=== PATIENT | female | born 1960 | race Caucasian/White ===

== ENCOUNTER → 2017-09-23 | Outpatient (CLI) | payer SELFPAY ==
[~2017-09-23] MED LIST: ONDA4TAB97 PO; OXYC-865 PO
--- NOTE | 2017-09-23 16:59 | RADIOLOGY IMAGING REPORT ---
FACILITY: [facility] - [place] PATIENT NAME: Yvrose Vazquez : 1960 MR: [id number] V: [id number] EXAM DATE: ORDERING PHYSICIAN: BRETT PINEDA TECHNOLOGIST: Location: [facility] - [place] Patient: Yvrose Vazquez : 1960 Visit/Account:[id number] Date of Sevice: 09/23/2017 Exam type: LUMBAR SPINE 2 OR 3 VIEW History: Long time back pain Comparison: None. Findings: AP and lateral views of the lumbar spine were submitted There are six nonrib-bearing lumbar-type vertebral bodies present. There is no evidence of acute fra ctures or subluxations the disc spaces appear well-preserved IMPRESSION: 1. Unremarkable two views of the lumbar spine. If patient's symptoms persist MR may be helpful Report Dictated By: Porsha Zaumdio MD at 09/23/2017 4:53 PM Report E-Signed By: Porsha Zamudio MD at 09/23/2017 4:55 PM WSN:[email or web address]
--- NOTE | 2017-09-23 17:00 | RADIOLOGY IMAGING REPORT ---
FACILITY: [facility] - [place] PATIENT NAME: Yvrose Vazquez : 1960 MR: [id number] V: [id number] EXAM DATE: ORDERING PHYSICIAN: BRETT PINEDA TECHNOLOGIST: Location: [facility] Patient: Yvrose Vazquez : 1960 Visit/Account:[id number] Date of Sevice: 09/23/2017 Exam type: THORACIC SPINE 2 VIEW History: Long time back pain Comparison: None. Findings: AP and lateral views of the thoracic spine were submitted. There is a minimal levoconvex curvature t o the mid thoracic spine. There is no evidence of acute fractures or subluxations. No significant d egenerative changes are identified. IMPRESSION: 1. Gentle levoconvex curvature to the thoracic spine. No evidence of acute fractures or subluxation s Report Dictated By: Porsha Zamudio MD at 09/23/2017 4:55 PM Report E-Signed By: Porsha Zamudio MD at 09/23/2017 4:56 PM [email or web address]
== END ==
LOC: RAD 16:06
PROVIDERS: ATTEND Nurse Practitioner Family
DX: M54.5 Low back pain (principal); M54.6 Pain in thoracic spine
CPT/HCPCS: 72070; 72100

== ENCOUNTER 2018-04-16 23:21 | Emergency (ER) | payer OTHER ==
[~2018-04-16 23:21] MED LIST changes: -ACET500T68 PO; -CLIN300C99 PO; -LOR5/325 PO
--- NOTE | 2018-04-16 23:25 | ER Report ---
History and Physical Time Seen By MD: 23:26 HPI/ROS CHIEF COMPLAINT: slipped on the ice, wrist and knee pain HISTORY OF PRESENT ILLNESS: This is a 57 year old female. She was at work and slipped on the ice. Hyperextended her right knee. Has pain in right wrist as well with swelling and deformity. Has chronic back pain which is unchanged. No head injury or loss of consciousness. Normal sensation in arm and leg. Allergies: Coded Allergies: Antihistamines - Piperidine (Verified Allergy, Intermediate, 04/16/18) NSAIDS (Non-Steroidal Anti-Inflamma (Verified Allergy, Intermediate, 04/16/18) Penicillins (Verified Allergy, Intermediate, 04/16/18) Sulfa (Sulfonamide Antibiotics) (Verified Allergy, Intermediate, 04/16/18) cefuroxime (Verified Allergy, Intermediate, 04/16/18) erythromycin base (Verified Allergy, Intermediate, 04/16/18) tetracycline (Verified Allergy, Intermediate, 04/16/18) Home Meds Active Scripts Hydrocodone Bit/Acetaminophen (HYDROCODON-ACETAMINOPHEN 5-325) 1 Each Tablet, 1 EACH PO Q4H PRN for PAIN, #12 TAB 0 Refills Prov:TRES FRANCES MD 04/17/18 Discontinued Scripts Ondansetron Hcl (ZOFRAN) 4 Mg Tablet, 4 MG PO Q6H PRN for NAUSEA/VOMITING, #10 Prov:NEO WATSON DO 03/28/16 Oxycodone Hcl/Acetaminophen (PERCOCET 5-325 MG TABLET) 1 Each Tablet, 1 EACH PO Q4H PRN for PAIN, #12 Prov:NEO WATSON DO 03/28/16 Reviewed Nurses Notes: Yes Hx Substance Use Disorder: No Constitutional Vital Sign - Last 24 Hours 04/16/18 04/16/18 04/16/18 04/17/18 23:29 23:31 23:36 00:00 Temp 97.4 Pulse 85 Resp 18 B/P (MAP) 144/97 144/97 (113) 139/113 (122) Pulse Ox 96 96 O2 Delivery Room Air 04/17/18 04/17/18 04/17/18 04/17/18 00:29 00:51 01:00 01:06 Pulse 75 77 B/P (MAP) 134/88 (103) 124/103 (110) Pulse Ox 95 95 04/17/18 01:10 Pulse 77 Pulse Ox 93 Physical Exam General: Alert, no distress. Musculoskeletal: Right wrist is tender over the distal radius. No pain over ulnar styloid. No pain in the hand. Normal movement, but causes pain. Knee with pain medial and posterior aspect. No pain over patella, lateral side. No pain over quads/hamstrings. No laxity, but guarding and pain with testing. Neuro: Normal sensation in foot/leg, and hand/arm. Cardiovascular: Normal cap refill and pulses. Skin: No skin breakdown. DIFFERENTIAL DIAGNOSIS: After history and physical exam differential diagnosis was considered for wrist injury and knee injury, for fracture or soft tissue injury, sprain or strain. Medical Decision Making EKG/Imaging Imaging INDICATION: fall, wrist and knee pain EXAM DATE: 04/16/2018 11:37 PM COMPARISON: None. FINDINGS: 3 views right wrist. Mineralization is low. There is a comminuted, impacted and displaced intra-articular distal fracture of the radius. Minimally displaced fracture through the base of the ulnar styloid. Soft tissue swelling about the distal forearm and wrist. IMPRESSION: Distal fractures of the right radius and ulna in the setting of low bone mineralization. Report Dictated By: Lanre Meyer MD at 04/17/2018 12:48 AM INDICATION: fall, wrist and knee pain EXAM DATE: 04/16/2018 11:37 PM COMPARISON: None. FINDINGS: 4 views right knee. Mineralization is low. No acute alignment abnormality or fracture. Soft tissues are unremarkable. IMPRESSION: No acute osseous abnormality of the right knee. Report Dictated By: Lanre Meyer MD at 04/17/2018 12:50 AM ED Course/Re-evaluation ED Course Gave Lortab 5/325 to help with pain. Imaging shows fractures as noted above. Pooja khan half cast and sling applied. For her knee, she is having significant pain so we did give her a knee immobilizer and crutches. She will follow up with [facility] Re-evaluation Procedure: Pooja khan forearm after cast placement. A half-cast/splint as noted above was applied. After application of the half- cast, I returned and re-examined the patient. The half-cast was adequately immobilizing the joint and distally the patient's circulation and sensation was intact. This was applied by the network support technician. Decision to Disposition Date: Apr 17, 2018 Decision to Disposition Time: 01:05 Depart Departure Latest Vital Signs Vital Signs Date Time Temp Pulse Resp B/P (MAP) Pulse Ox O2 Delivery O2 Flow Rate FiO2 04/17/18 01:10 77 93 04/17/18 01:00 124/103 (110) 04/16/18 23:29 97.4 18 Room Air Impression: Primary Impression: Wrist fracture, right Additional Impressions: Fall Knee strain Condition: Improved Disposition: HOME OR SELF-CARE Referrals: BRETT PINEDA OTC CLERK (PCP) New Scripts Hydrocodone Bit/Acetaminophen (HYDROCODON-ACETAMINOPHEN 5-325) 1 Each Tablet 1 EACH PO Q4H PRN for PAIN, #12 TAB 0 Refills Prov: TRES FRANCES MD 04/17/18 Patient Instructions: Muscle Strain (ED), Wrist Fracture in Adults (ED) Additional Instructions: Ibuprofen 200mg over the counter tablets, take 4 tablets three times a day with food. Lortab 5/325, one every 4 hours as needed for pain. Apply ice 20 minutes every 1-2 hours while awake. Keep the splint in place until you follow up with [facility]. Call [facility] tomorrow morning to arrange an appointment for early next week. Rest the injured area, keep it elevated while at rest. Problem Qualifiers Primary Impression: Wrist fracture, right Encounter type: initial encounter Fracture type: closed Qualified Codes: S62.101A - Fracture of unspecified carpal bone, right wrist, initial encounter for closed fracture Additional Impressions: Fall Encounter type: initial encounter Qualified Codes: W19.XXXA - Unspecified fall, initial encounter Knee strain Encounter type: initial encounter Laterality: right Qualified Codes: S86.911A - Strain of unspecified muscle(s) and tendon(s) at lower leg level, right leg, initial encounter TRES FRANCES MD Apr 16, 2018 23:25
[2018-04-16] MEDS ORDERED: APAP/HYDROCODONE 325/5 TAB PO ONE (23:35)
--- NOTE | 2018-04-17 00:53 | RADIOLOGY IMAGING REPORT ---
FACILITY: [facility] PATIENT NAME: Yvrose Vazquez : 1960 MR: [id number] V: [id number] EXAM DATE: ORDERING PHYSICIAN: TRES FRANCES TECHNOLOGIST: Location: [facility] Patient: Yvrose Vazquez : 1960 Visit/Account:[id number] Date of Sevice: 04/16/2018 INDICATION: fall, wrist and knee pain EXAM DATE: 04/16/2018 11:37 PM COMPARISON: None. FINDINGS: 3 views right wrist. Mineralization is low. There is a comminuted, impacted and displaced intra-lily cular distal fracture of the radius. Minimally displaced fracture through the base of the ulnar styl oid. Soft tissue swelling about the distal forearm and wrist. IMPRESSION: Distal fractures of the right radius and ulna in the setting of low bone mineralization. Report Dictated By: Lanre Meyer MD at 04/17/2018 12:48 AM Report E-Signed By: Lanre Meyer MD at 04/17/2018 12:50 AM WSN:[id number]
--- NOTE | 2018-04-17 00:54 | RADIOLOGY IMAGING REPORT ---
FACILITY: [facility] - [place] PATIENT NAME: Yvrose Vazquez : 1960 MR: [id number] V: [id number] EXAM DATE: ORDERING PHYSICIAN: TRES FRANCES TECHNOLOGIST: Location: [facility] - [place] Patient: Yvrose Vazquez : 1960 Visit/Account:[id number] Date of Sevice: 04/16/2018 INDICATION: fall, wrist and knee pain EXAM DATE: 04/16/2018 11:37 PM COMPARISON: None. FINDINGS: 4 views right knee. Mineralization is low. No acute alignment abnormality or fracture. Soft tissues are unremarkable. IMPRESSION: No acute osseous abnormality of the right knee. Report Dictated By: Lanre Meyer MD at 04/17/2018 12:50 AM Report E-Signed By: Lanre Meyer MD at 04/17/2018 12:51 AM WSN:[id number]
[2018-04-17 01:00] VITALS: BP 124/103
[2018-04-17] MEDS ORDERED: LOR5/325 PO (01:05)
[2018-04-17] MEDS ORDERED: ACET/HYDROC 5/325MG TH ER ONLY 2 TAB/BOTTLE PO ONE (01:10)
[2018-04-22] MEDS ORDERED: ACET500T68 PO (14:33)
== END 2018-04-17 02:50 | disposition home or self-care (01) ==
LOC: ER 23:36
DX: S62.101A Fracture of unspecified carpal bone, right wrist, initial encounter for closed fracture (principal); S86.911A Strain of unspecified muscle(s) and tendon(s) at lower leg level, right leg, initial encounter; W00.0XXA Fall on same level due to ice and snow, initial encounter
CPT/HCPCS: 29125; 73110; 73564; 99284; A4565; L1830

== ENCOUNTER → 2018-04-16 | Outpatient (CLI) | payer OTHER ==
[~2018-04-16] MED LIST changes: +ACET500T68 PO; +CLIN300C99 PO; +LOR5/325 PO
== END ==
LOC: AMB 23:08
PROVIDERS: ATTEND Nurse Practitioner
DX: M25.531 Pain in right wrist (principal); M25.561 Pain in right knee; M54.5 Low back pain; W00.0XXA Fall on same level due to ice and snow, initial encounter
CPT/HCPCS: A0425; A0429

== ENCOUNTER → 2018-04-20 | Outpatient (CLI) | payer OTHER ==
[~2018-04-20] MED LIST changes: +ACET500T68 PO; +LOR5/325 PO
--- NOTE | 2018-04-20 15:44 | RADIOLOGY IMAGING REPORT ---
FACILITY: [facility] - [place] PATIENT NAME: Yvrose Vazquez : 1960 MR: [id number] V: [id number] EXAM DATE: [id number] ORDERING PHYSICIAN: ANTHONY ZAVALA TECHNOLOGIST: Location: [facility] Patient: Yvrose Vazquez : 1960 Visit/Account:[id number] Date of Sevice: 04/20/2018 WRIST RIGHT W/O CONTRAST Indication: Pain Comparison: None available Technique: Axial CT images were obtained through the right . Reformatted coronal and sagittal images were reviewed. One of the following dose optimization techniques was utilized in the performance of this exam: autom ated exposure control; adjustment of the mA and/or kV according to the patient's size; or use of an i terative reconstruction technique. Specific details can be referenced in the facility's radiology CT exam operational policy. Findings: There is a markedly comminuted mildly impacted intra-articular fracture the distal radius with overal l approximately 7 mm of impaction of the radial shaft into the distal radius metaphysis. There is also a minimally offset fracture of the ulnar styloid. The proximal carpal row appears well aligned. Moderate soft tissue swelling seen about the wrist. Small sclerotic density seen within the scaphoid bone suggesting small bone island. The visualized flexor and extensor tendons of the level the wrist appear to be intact and overall unr emarkable. IMPRESSION: 1. Impacted comminuted intra-articular fracture distal radius as above. 2. Mild offset fracture ulnar styloid. Report Dictated By: Randy Suarez MD at 04/20/2018 3:37 PM Report E-Signed By: Randy Suarez MD at 04/20/2018 3:41 PM WSN:[id number]
== END ==
LOC: CT 12:42
PROVIDERS: ATTEND Orthopaedic Surgery Hand Surgery
DX: M84.433A Pathological fracture, right radius, initial encounter for fracture (principal); M84.431A Pathological fracture, right ulna, initial encounter for fracture

== ENCOUNTER 2018-04-24 01:32 | Day surgery (SDC) | payer OTHER ==
[~2018-04-24] VITALS: Ht 162.6 cm; Wt 72.1 kg
[2018-04-24] MEDS ORDERED: fentaNYL CITR 250 MCG/5 ML AMP ONE (10:56)
[2018-04-24 14:40] VITALS: BP 149/96
[2018-04-24] MEDS ORDERED: FAMOTIDINE 20 MG TAB PO ONE (15:30)
[2018-04-24] MEDS ORDERED: CLINDAMYCIN 900 MG/D5W 50 ML 50 ML IVPB ONE (15:30)
[2018-04-24] MEDS ORDERED: MIDAZOLAM 2 MG/2 ML VIAL IVP PRN (15:30)
[2018-04-24] MEDS ORDERED: LIDOCAINE/SOD BICARB 8.4% SYR ID ONE (15:30)
[2018-04-24] MEDS ORDERED: NORMOSOL R SOLN(*) 1000 ML BAG 1,000 ML IV PRN (15:30)
[2018-04-24] MEDS ORDERED: LIDOCAINE MPF 1% 5 ML VIAL ONE (15:43)
[2018-04-24] MEDS ORDERED: PROPOFOL EMUL(*) 10MG/ML 20 ML 20 ML ONE (15:43)
[2018-04-24] MEDS ORDERED: ONDANSETRON 4 MG/2 ML VIAL ONE (15:43)
[2018-04-24] MEDS ORDERED: DEXAMETHASONE SOD 4 MG/ML VIAL ONE (15:43)
[2018-04-24] MEDS ORDERED: METOCLOPRAMIDE 10 MG/2 ML SDV ONE (15:43)
[2018-04-24] MEDS ORDERED: BACITRACIN OINT 15 GM TUBE TP ONE (17:25)
[2018-04-24] MEDS ORDERED: ROPIVACAINE 0.2% 20 ML VIAL ONE (17:25)
[2018-04-24] MEDS ORDERED: fentaNYL CITR 100 MCG/2 ML AMP ONE ×2 (19:51→20:36)
[2018-04-24] MEDS ORDERED: ACETAMINOPHEN(*)1000 MG/100 ML 100 ML IVPB ONE (19:57)
[2018-04-24] MEDS ORDERED: oxyCODONE HCL 5 MG CAP ONE (21:18)
[2018-04-24] MEDS ORDERED: CLIN300C99 PO (21:25)
--- NOTE | 2018-04-25 07:55 | OPERATIVE REPORT 1 ---
EVENT DATE: April 24, 2018 SURGEON: Last Fabian MD ANESTHESIOLOGIST: Brien Perales MD ANESTHESIA: General. CONTENT DEVELOPER: VENKATA Hernandez PREOPERATIVE DIAGNOSIS Comminuted multipart intraarticular distal radius fracture with approximately 6- 7 parts. POSTOPERATIVE DIAGNOSIS Comminuted multipart intraarticular distal radius fracture with approximately 6- 7 parts. PROCEDURE PERFORMED Open reduction and internal fixation right distal radius fracture, intraarticular multipart (87719). ESTIMATED BLOOD LOSS Minimal. IVF 1400 TOURNIQUET TIME 83 SPECIMENS None. COMPLICATIONS None. IMPLANTS USED TriMed radial pin plate, ulnar pin plate, and dorsal buttress plate with pin. DESCRIPTION OF PROCEDURE The patient was brought into the operating room and placed on the OR table in the supine position. After obtaining adequate general anesthesia, the right upper extremity was prepped and draped in the usual sterile fashion. The limb was exsanguinated and the tourniquet was inflated. We made a dorsal incision deep in through the skin and subcutaneous tissue. The EPL was radialized. The extensor retinaculum was reflected. The contents of the 4th dorsal compartment were placed on a 1/4 inch [place] and retracted towards the ulnar side and the EPL along with the extensor carpi ulnaris, longus and brevis were placed on a second Becka drain and retracted the opposite direction. We opened the dorsal aspect of the radius, leaving soft tissue attached to the varius fragments to the best of our ability and then opened the capsule. Longitudinal traction provided access to the fracture. There was the split in the scaphoid fossa as well as the comminuted splits in the lunate fossa. There was an impacted articular fragment which we were able to elevate with a dental temp and then progressively closed the elements and held them temporarily with K-wires. We fixed a dorsal ulnar pin plate to hold that fragment by the sigmoid notch and then placed screws to retain it. A dorsal sled was placed with one limb in the lunate fragment and one limb in the comminuted segments supporting the articular fragment that had been depressed and then put screws here to hold this as well. Finally, we reflected the tissues towards the ulnar side and released the brachial radialis attachment which exposed the final area of comminution. There were several fragments down beneath this as well which we really could not put a screw into. It was too small, but we were able to secure a dorsal radial pin plate and the K-wire that was in the distal ulnar styloid and this allowed compression to secure it in position. A couple of screws were placed in this followed by 2 pins distally. We checked the fluoroscopy and it appeared that the articular surface had been adequately restored, both in terms radial inclination, the articular elements themselves, and then also for the volar tilt. The wound was irrigated. We split the retinaculum and placed half of it beneath the tendons on the plate and the other half was placed over the top of the tendons. The wound was irrigated a final time. The tourniquet was deflated. Bipolar cautery was used where necessary for hemostasis, followed by closure with Nylon. She was given a dry, sterile, dressing and a volar splint and was transferred to the post anesthesia care unit in stable condition. [facility]
== END 2018-04-24 21:50 | disposition home or self-care (01) ==
LOC: OR 01:32
PROVIDERS: ATTEND Orthopaedic Surgery Hand Surgery
DX: S52.571A Other intraarticular fracture of lower end of right radius, initial encounter for closed fracture (principal); W00.0XXA Fall on same level due to ice and snow, initial encounter
CPT/HCPCS: 25609; 76000; A4565; C1713; J0131; J1100; J2001; J2405; J2704; J2765; J2795; J3010; J3490